=== PATIENT | female | born 1975 | race Caucasian/White ===

== ENCOUNTER 2017-08-16 11:30 | Emergency (ER) | payer BC ==
[2017-08-16 12:30] VITALS: BP 109/71
--- NOTE | 2017-08-16 13:02 | RAD ---
Indication: Distal fifth metatarsal pain. 3 views of the right foot demonstrates no fracture. No other bone or joint abnormality is identified. IMPRESSION: No fracture or other bone or joint abnormalities identified.
--- NOTE | 2017-08-16 13:11 | UC ---
Justina Wolfe SooYoung, scribed for Lulu Low MD on 08/16/17 at 1237 . Lower Extremity/Ankle HPI - HPI Summary HPI Summary: A 41 y/o F presents to [facility] with c/o worsening R lateral forefoot pain with pressure and weight bearing onset 5 days ago. She unsure of mechanism of injury. Denies edema of foot, ankle pain, arthralgia. She is on her feet a lot, [place], walks often on uneven terrain, but denies any unusual activity. Took 2 200mg Advil, most recently yesterday. She's used heat to no relief. The pain does not wake her from sleep. Most typically wears Dansko shoes, but has changed to crocs or running shoe since onset of pain. - History of Current Complaint Chief Complaint: UCLowerExtremity Stated Complaint: R FOOT IRRITATION Time Seen by Provider: 08/16/17 12:28 Hx Obtained From: Patient Hx Last Menstrual Period: 07/24/17 Onset/Duration: Gradual Onset, Lasting Days, Still Present Severity Initially: Moderate Severity Currently: Moderate Pain Intensity: 6 Pain Scale Used: 0-10 Numeric Aggravating Factor(s): Standing - applying pressure, Ambulation - applying pressure Able to Bear Weight: Yes - with pain - Risk Factors Gout Risk Factors: Age Over 40 DVT Risk Factors: Negative Septic Arthritis Risk Factor: Negative - Allergies/Home Medications Allergies/Adverse Reactions: Allergies Allergy/AdvReac Type Severity Reaction Status Date / Time No Known Allergies Allergy Verified 08/16/17 12:25 Home Medications: Home Medications LevoCETirizine TAB (NF) [Xyzal TAB (NF)] 5 mg PO DAILY 08/16/17 [History Confirmed 08/16/17] Montelukast Sodium TAB* [Singulair TAB*] 10 mg PO DAILY 08/16/17 [History Confirmed 08/16/17] PMH/Surg Hx/FS Hx/Imm Hx Previously Healthy: Yes - neg: gout Cardiovascular History: Other Other Cardiovascular History: neg: HTN - Surgical History Surgical History: Yes Surgery Procedure, Year, and Place: c/secx 2 - Family History Known Family History: Positive: Cardiac Disease - paternal; quintuple bypass in 40s, at 67, Other - Negative for gout. Father of bladder cancer. 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 Lives: With Family Alcohol Use: Occasionally Substance Use Type: None Smoking Status (MU): Never Smoked Tobacco Review of Systems Constitutional: Negative Skin: Negative Eyes: Negative ENT: Negative Respiratory: Negative, Other - allergies well controlled with present regimen. Past tendency to bronchitis due to congesiton, never needed inhalers. Cardiovascular: Negative Gastrointestinal: Negative Genitourinary: Negative Motor: Negative Neurovascular: Negative Musculoskeletal: Other: - pos: R lateral foot pain; neg: arthralgia Neurological: Negative Psychological: Negative All Other Systems Reviewed And Are Negative: Yes Physical Exam Triage Information Reviewed: Yes Appearance: Well-Appearing, Pain Distress - moderate Vital Signs: Initial Vital Signs Temp 98 F 08/16/17 12:26 Pulse 76 08/16/17 12:26 Resp 16 08/16/17 12:26 BP 109/71 08/16/17 12:26 Pulse Ox 99 08/16/17 12:26 Vital Signs Reviewed: Yes ENT: Positive: Pharynx normal Neck: Positive: Supple, Nontender, No Lymphadenopathy Respiratory: Positive: Lungs clear, Normal breath sounds Cardiovascular: Positive: RRR, No Murmur Musculoskeletal: Positive: ROM Intact, No Edema - no calf pain, neg Vanessa's., Other: - right foot without swelling, eythema or warmth. Tenderness right distal fifth metatarsal. No pain or swelling in MTP joints. Can flex and extend digitis wihout pain. Neurological Exam: Normal Psychological Exam: Normal Skin Exam: Normal Diagnostics - Laboratory Diagnostic Studies Completed/Ordered: Xray of the right foot shows normal bony structure, no fracture. Lower Extremity Course/Dx - Course Course Of Treatment: Pt medications reviewed this visit. BP is not elevated. Ice and nsaid to decrease pain in the right foot. - Differential Dx/Diagnosis Differential Diagnosis/HQI/PQRI: Contusion, Sprain, Strain, Tendonitis, Tenosynovitis Provider Diagnoses: right forefoot pain, likely related to footwear and overuse. Discharge - Discharge Plan Condition: Stable Disposition: HOME Patient Education Materials: Foot Sprain (ED) Additional Instructions: I suggest using ibuprofen 600mg three times daily for 5 to 7 days to decrease inflammation in the foot. Wear supportive footwear and avoid use of the Dansko's for now. Follow up if pain persists. The documentation as recorded by the Justina flores SooYoung accurately reflects the service I personally performed and the decisions made by me, Lulu Low MD.
== END 2017-08-16 13:15 | disposition home or self-care (01) ==
LOC: UCEAST 11:30
DX: M79.671 Pain in right foot (principal)
CPT/HCPCS: 99211; G0463

== ENCOUNTER 2018-10-21 08:33 | Emergency (ER) | payer BC ==
[2018-10-21] MEDS ORDERED: Aspirin TAB* 325 MG PO ONE (09:29)
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
[2018-10-21] MEDS ORDERED: NS 0.9% 1000 ML* 1,000 ML IV ONE (09:37)
[2018-10-21] MEDS ORDERED: Aspirin 81 mg CHEW TAB* 81 MG TAB.CHEW ONE (09:42)
[2018-10-21 09:46] LABS: ABS Basophils 0 10^3/ul (0-0.2); ABS Eosinophils 0.2 10^3/ul (0-0.6); ABS Monocytes 0.5 10^3/ul (0-0.8); ABS Neutrophils 2.2 10^3/ul (1.5-7.7); ABS Nucleated RBC 0 10^3/ul; Eosinophil % 4.9 %; Hematocrit 39 % (35-47); Lymphocyte % 40.1 %; Mean Corpuscular HGB Conc 34 g/dl (31-36); Mean Corpuscular Hemoglobin 28 pg (27-31); Mean Corpuscular Volume 85 fL (80-97); Mean Platelet Volume 7.8 fL (7.4-10.4); Nucleated Red Blood Cells % 0.1; Platelet Count 253 10^3/ul (150-450); Red Blood Count 4.57 10^6/ul (4.00-5.40); Red Cell Distribution Width 14 % (10.5-15)
[2018-10-21 09:55] LABS: INR 0.94 (0.77-1.02)
[2018-10-21] MEDS: Aspirin 81 mg CHEW TAB* 81 MG TAB.CHEW PO ONE ×2 (09:58→09:59)
[2018-10-21 10:06] LABS: EGFR Non-African American 76.1 (>60)
[2018-10-21 10:58] LABS: Urine Appearance Cloudy; Urine Blood Negative (Negative); Urine Color Yellow; Urine Ketones Negative (Negative); Urine Protein Negative (Negative); Urine Specific Gravity 1.012 (1.010-1.030); Urine Urobilinogen Negative (Negative)
[2018-10-21 13:23] VITALS: BP 119/78
== END 2018-10-21 13:22 | disposition home or self-care (01) ==
LOC: ED 08:33
DX: M54.9 Dorsalgia, unspecified (principal); M62.838 Other muscle spasm; Z87.891 Personal history of nicotine dependence; Z82.49 Family history of ischemic heart disease and other diseases of the circulatory system
CPT/HCPCS: 36415; 71046; 80053; 81003; 83605; 83735; 84443; 84484; 84702; 85025; 85379; 85610; 85730; 93005; 96360; 96361; 99283; A9270-GY